=== PATIENT | female | born 1990 | race Two or more races ===

== ENCOUNTER 2016-10-16 17:24 | Emergency (ER) | payer MEDICAID ==
[2016-10-16] MEDS ORDERED: ACETAMINOPHEN 500 MG TABLET ONE (18:20)
[2016-10-16 18:40] LABS: PH,URINE 6.5 (5.0-8.0); URINE BILIRUBIN NEGATIVE (NEGATIVE); URINE BLOOD 2+ (NEGATIVE); URINE GLUCOSE (UA) NEGATIVE (NEGATIVE); URINE LEUKOCYTE ESTERASE NEGATIVE (NEGATIVE); URINE NITRITE NEGATIVE (NEGATIVE); URINE PROTEIN NEGATIVE (NEGATIVE); URINE UROBILINOGEN 1 mg/dL (0-1 mg/dl)
[2016-10-16 18:41] LABS: URINE APPEARANCE CLOUDY; URINE COLOR DARK YELLOW
[2016-10-16 18:42] LABS: HCG,QUALITATIVE URINE NEGATIVE
[2016-10-16 18:50] LABS: URINE EPITHELIAL CELLS 0-1 /hpf
[2016-10-16 18:51] LABS: URINE BACTERIA 4+
== END 2016-10-16 19:07 | disposition home or self-care (01) ==
LOC: ED 17:24
DX: L90.5 Scar conditions and fibrosis of skin (principal); R10.9 Unspecified abdominal pain
CPT/HCPCS: 81025; 87086; 87186; 81001; 99283 ×2; A9270